=== PATIENT | male | born 1955 | race Caucasian/White ===

== ENCOUNTER 2018-03-13 09:13 | Day surgery (SDC) | payer BC ==
[2018-03-09 10:31] VITALS: BMI 32.5
[~2018-03-13 09:13] MED LIST: LACTATED RINGERS 1,000 ML IV SCH
[2018-03-13 09:36] VITALS: TEMP 98
[2018-03-13] MEDS ORDERED: LIDOCAINE 1% 20 ML VIAL (10MG/ML) FOR IV START INTRADERMA ONE (09:41)
[2018-03-13] MEDS ORDERED: MIDAZOLAM 2 MG/2 ML VIAL ONE (10:06)
[2018-03-13] MEDS ORDERED: PROPOFOL 10 MG/ML 20 ML VIAL IV ONE (10:06)
--- NOTE | 2018-03-13 10:37 | P.PCN ---
Date of Procedure: 03/13/18 Procedure(s) Performed: Procedure: Total colonoscopy. Preoperative diagnosis: Screening for neoplasia. Postoperative diagnosis: Sigmoid diverticulosis with no evidence of acute diverticulitis, strictures, polyps or cancer. Preparation: HalfLytely prep. Sedation: Was provided by anesthesia. Brief clinical history: The patient is a 62-year-old male who is scheduled for this evaluation because of family history of colon cancer in both parents. He had multiple exams over the years the last was around 5 years ago. The patient has no abdominal complaints, bleeding or anemia. Procedure: With the patient on his left lateral decubitus position and after informed consent and adequate sedation, the perianal area was inspected and it did not show any fissures or fistulas. There were no masses felt on digital rectal examination. The Olympus CFH 190L video colonoscope was then inserted in the rectum in the usual fashion and advanced to the cecum. There were several diverticular orifices seen scattered in the sigmoid but I saw no evidence of acute diverticulitis or strictures. No polyps or tumors were seen. The mucosa appeared healthy. I retroflexed the endoscope in the rectum before the endoscope was withdrawn. The patient tolerated the procedure well. Plan: The patient was reassured. Discussed dietary measures. He will follow up with you as planned and I recommended repeat exam in 5 years.
[2018-03-13 10:57] VITALS: BP 107/69; PULSE 59; RESP 16
== END 2018-03-13 11:17 | disposition home or self-care (01) ==
LOC: ORWHC2ENDO 09:13
DX: Z12.11 Encounter for screening for malignant neoplasm of colon (principal); K57.30 Diverticulosis of large intestine without perforation or abscess without bleeding; I10 Essential (primary) hypertension; K21.9 Gastro-esophageal reflux disease without esophagitis; Z79.899 Other long term (current) drug therapy; Z88.8 Allergy status to other drugs, medicaments and biological substances; Z80.0 Family history of malignant neoplasm of digestive organs; Z98.1 Arthrodesis status
CPT/HCPCS: 45378; J2250; J2704